=== PATIENT | male | born 1995 | race Caucasian/White ===

== ENCOUNTER 2021-04-26 15:17 | Emergency (ER) | payer OTHER ==
[~2021-04-26] VITALS: Ht 182.9 cm; Wt 65.8 kg
[2021-04-26 16:47] LABS: ABSOLUTE NEUTROPHILS 7.4 thou/uL (1.4-8.2); BASOPHILS 0.1 % (0.0-2.0); EOSINOPHILS 0.4 % (0.0-3.0); HEMATOCRIT 47.1 % (42.0-52.0); LYMPHOCYTES 12.8 % (24.0-44.0); MCH 32.4 pg (26.0-34.0); MCHC 34.1 g/dL (28.0-37.0); MCV 95.3 fL (80.0-100.0); MONOCYTES 4.1 % (1.0-8.0); PLATELET COUNT 217 thou/uL (150-400); POLYS 82.6 % (36.0-66.0); RBC 4.94 mil/uL (4.50-6.00); RDW 12.3 % (10.5-14.5)
[2021-04-26 16:56] LABS: CALCIUM 9.1 mg/dL (8.5-10.1); POTASSIUM 4.7 mmol/L (3.5-5.1)
[2021-04-26] MEDS ORDERED: FLEXERIL PO (17:21)
[2021-04-26 17:32] VITALS: BP 106/67
== END 2021-04-26 17:33 | disposition home or self-care (01) ==
LOC: ER 15:17
PROVIDERS: Emergency Medicine
DX: S29.012A Strain of muscle and tendon of back wall of thorax, initial encounter (principal); Z90.89 Acquired absence of other organs; Z88.0 Allergy status to penicillin; Z91.010 Allergy to peanuts; F17.210 Nicotine dependence, cigarettes, uncomplicated